=== PATIENT | female | born 2000 | race Caucasian/White ===

== ENCOUNTER 2024-05-12 12:58 | Emergency (ER) | payer MEDICAID | END 2024-05-12 13:40 | disposition home or self-care (01) | LOC: LB.ED 12:58 | DX: J34.89 Other specified disorders of nose and nasal sinuses (principal) | CPT/HCPCS: 99282 ==

== ENCOUNTER 2024-05-27 12:59 | Emergency (ER) | payer SELFPAY | END 2024-05-27 13:56 | disposition home or self-care (01) | LOC: LB.ED 12:59 | DX: K02.9 Dental caries, unspecified (principal); F17.210 Nicotine dependence, cigarettes, uncomplicated | CPT/HCPCS: 99282; 99283 ==

== ENCOUNTER 2024-10-15 13:05 | Emergency (ER) | payer SELFPAY ==
[2024-10-15] MEDS: Ondansetron 4 MG Tab.DIS PO ONE (13:27)
[2024-10-15] MEDS: Ibuprofen 800 MG Tab PO ONE ×2 (13:28→13:34)
[2024-10-15] MEDS: Acetaminophen 500 MG Tab PO ONE ×2 (13:28→13:34)
[2024-10-15] MEDS ORDERED: Ondansetron 4 MG Tab.DIS ONE (14:00)
[2024-10-15 14:14] LABS: INFLUENZA A NAA POSITIVE (NEGATIVE); INFLUENZA B NAA NEGATIVE (NEGATIVE); RESPIRATORY SYNCYTIAL VIR NAA NEGATIVE (NEGATIVE)
[2024-10-15 14:16] LABS: CORONAVIRUS COVID-19 NAA NEGATIVE (NEGATIVE)
[2024-10-15] MEDS: Albuterol/Ipratropium 3.0-0.5 MG/3 ML Neb Soln NEB PRN (14:18)
== END 2024-10-15 14:38 | disposition home or self-care (01) ==
LOC: LB.ED 13:05
DX: J10.1 Influenza due to other identified influenza virus with other respiratory manifestations (principal)
CPT/HCPCS: 0241U; 94640; 99283; 99284; A9270-GY; J7620; Q0162